=== PATIENT | female | born 1990 | race African-American/Black ===

== ENCOUNTER 2017-10-12 22:52 | Emergency (ER) | payer BC ==
[~2017-10-12] VITALS: Ht 154.9 cm; Wt 76.7 kg
[~2017-10-12 22:52] MED LIST: AMOXICILLI250 MG/51 PO; CIPRO250 M1; HYDROCODONE-AP1 EAC6; PHENERGAN 25 MG25 M1 PO; PYRIDIUM200 MG PO
[2017-10-12] MEDS ORDERED: NOHOMEMEDICATIONS (22:57)
[2017-10-12] MEDS ORDERED: NAPROSYN500 MG PO (23:28)
[2017-10-12] MEDS ORDERED: BUTALB-APAP-CA1 EACH PO (23:28)
== END 2017-10-12 23:30 | disposition home or self-care (01) ==
LOC: ER 22:52
DX: G57.61 Lesion of plantar nerve, right lower limb (principal); R51 Headache

== ENCOUNTER 2020-05-31 02:33 | Emergency (ER) | payer OTHER ==
[~2020-05-31] VITALS: Ht 154.9 cm; Wt 62.1 kg
[~2020-05-31 02:33] MED LIST changes: +BUTALB-APAP-CA1 EACH PO; +NAPROSYN500 MG PO; +NOHOMEMEDICATIONS
[2020-05-31 02:34] VITALS: BP 125/93
[2020-05-31] MEDS ORDERED: NOHOMEMEDICATIONS (02:41)
[2020-05-31] MEDS ORDERED: NAPROSYN500 MG PO (03:12)
[2020-05-31] MEDS ORDERED: TRAMADOL 50 MG50 MG PO (03:12)
== END 2020-05-31 03:33 | disposition home or self-care (01) ==
LOC: ER 02:33
DX: M21.42 Flat foot [pes planus] (acquired), left foot (principal); M21.41 Flat foot [pes planus] (acquired), right foot; M54.5 Low back pain; M25.562 Pain in left knee; M25.561 Pain in right knee; M25.551 Pain in right hip; M25.552 Pain in left hip